=== PATIENT | female | born 1945 | race Caucasian/White ===

== ENCOUNTER 2023-12-24 12:37 | Day surgery (SDC) | payer MEDICARE ==
[2023-12-24 13:33] VITALS: BP 154/70; TEMP 98.1
[2023-12-24 14:13] LABS: INR-International Normal Ratio 3.4; Prothrombin Time 33.8 sec (9.5-12.1)
== END 2023-12-24 15:20 | disposition home or self-care (01) ==
LOC: CSHSDC 12:37
PROVIDERS: ATTEND Internal Medicine Cardiovascular Disease
PROC: 5A2204Z Restoration of Cardiac Rhythm, Single (ICD-10-PCS; principal; 2023-12-24)
DX: I48.0 Paroxysmal atrial fibrillation (principal); I12.9 Hypertensive chronic kidney disease with stage 1 through stage 4 chronic kidney disease, or unspecified chronic kidney disease; N18.9 Chronic kidney disease, unspecified; E03.9 Hypothyroidism, unspecified; E78.5 Hyperlipidemia, unspecified; M19.90 Unspecified osteoarthritis, unspecified site; G25.81 Restless legs syndrome; F32.A Depression, unspecified; F43.10 Post-traumatic stress disorder, unspecified; Z79.01 Long term (current) use of anticoagulants; Z79.899 Other long term (current) drug therapy; Z79.890 Hormone replacement therapy; Z98.890 Other specified postprocedural states
CPT/HCPCS: 85610; 92960; 93005; 93010